=== PATIENT | male | born 1975 | race Caucasian/White ===

== ENCOUNTER 2022-05-07 14:10 | Outpatient (REF) | payer BC, SELFPAY ==
[2022-05-07 15:32] LABS: Hematocrit 45.3 % (42.0-52.0); Hemoglobin 15.6 g/dl (14.0-18.0); Mean Corpuscular HGB Conc 34.4 g/dl (31.0-36.0); Mean Corpuscular Hemoglobin 30.8 pg (27.0-33.0); Mean Corpuscular Volume 89.5 fL (80.0-98.0); Platelet Count 342 X10*3/uL (160-400); Red Blood Count 5.06 X10*6/uL (4.60-5.80); Red Cell Distribution Width 11.5 % (11.0-16.0)
[2022-05-07 15:58] LABS: Alanine Aminotransferase 60 U/L (0-40); Albumin Level 4.4 g/dL (3.5-5.0); Alkaline Phosphatase 51 U/L (39-117); Anion Gap 13 (12-20); Aspartate Amino Transferase 27 U/L (5-37); Bilirubin Direct 0.2 mg/dL (0.0-0.5); Bilirubin Total 0.7 mg/dL (0.0-1.0); Blood Urea Nitrogen 14 mg/dL (9-16); Calcium 9.4 mg/dL (8.4-10.2); Carbon Dioxide 28 mmol/L (22-29); Chloride 103 mmol/L (96-108); Cholesterol 204 mg/dL; Estimated Glomerular Filt Rate > 60; Glucose Random 99 mg/dL (60-115); HDL Cholesterol 42 mg/dL; LDL Cholesterol Calculated 123 mg/dl; Potassium 4.6 mmol/L (3.3-5.1); Sodium 139 mmol/L (135-145); Total Protein 6.9 g/dL (6.5-8.0); Triglycerides 198 mg/dL
[2022-05-07 16:17] LABS: Thyroid Stimulating Hormone 0.76 uIU/mL (0.32-4.0)
== END 2022-05-07 14:11 | disposition home or self-care (01) ==
LOC: HO.LAB 14:10
PROVIDERS: PCP Internal Medicine; Visit Provider Internal Medicine
DX: Z00.00 Encounter for general adult medical examination without abnormal findings (principal)
CPT/HCPCS: 36415; 80048; 80061; 80076; 84443; 85027

== ENCOUNTER → 2022-06-17 08:21 | Outpatient (BNVA) | payer BC, SELFPAY | PROVIDERS: PCP Internal Medicine; Visit Provider Physician Assistant | DX: Z13.89 Encounter for screening for other disorder (principal) ==

== ENCOUNTER 2022-11-18 10:32 | Day surgery (SDC) | payer BC, SELFPAY ==
--- NOTE | 2022-11-17 12:27 | HO.ANESPROP2 ---
Documented by User: Melvi Kenney NP 11/17/22 12:27 HPI - Anesthesia Eval Consult details Narrative: 47yo M for Colonoscopy COUNTS INCLUDE 234 BEDS AT THE [facility] Active Problems Active Problems: All Active Problems (Updated 06/17/22 @ 09:16 by Yoli Pichardo PA-C) Encounter for screening colonoscopy (Acute) History of chronic constipation (Acute) Annual physical exam (Acute) Upper respiratory tract infection (Acute) Obstructive sleep apnea (Acute) Obesity (Acute) Past Medical History Medical History Obesity Obstructive sleep apnea Family History Family History Father Alive and well Mother Alive and well Surgical History Surgical History H/O right knee surgery History of hand surgery Social History Social History (Updated 06/17/22 @ 08:57 by Yoli Pichardo PA-C) Alcohol intake: current Alcohol intake frequency: holidays/special occasions only Patient Tobacco Use Status: Former Tobacco user Quit Date: 01/2022 Are you DNR?: No Advance Directives: No Advance Directives Information Provided: Yes Nutrition Risks: No Nutritional Risk Cognitive needs: No Hearing needs: No Vision needs: No Meds Allergies Allergy/AdvReac Type Severity Reaction Status Date / Time No Known Allergies Allergy Verified 06/17/22 08:25 Exam Exam Date and Time: November 17, 2022 1227 Pertinent Lab Results Pertinent Lab Results: Laboratory Tests 05/07/22 05/07/22 14:33 14:33 WBC 6.0 Hgb 15.6 Hct 45.3 Plt Count 342 Sodium 139 Potassium 4.6 Chloride 103 Carbon Dioxide 28 BUN 14 Creatinine 0.84 Assessment and Plan Assessment Anesthesia Assessment: Chart Reviewed Documented by User: Chester Salcedo MD 11/18/22 11:13 COUNTS INCLUDE 234 BEDS AT THE [facility] Past Medical History Medical History Obesity Obstructive sleep apnea Family History Family History Father Alive and well Mother Alive and well Family history of problems with anesthesia: No Surgical History Surgical History H/O right knee surgery History of hand surgery History of Problems with Anesthesia: No Social History Social History (Updated 06/17/22 @ 08:57 by Yoli Pichardo PA-C) Alcohol intake: current Alcohol intake frequency: holidays/special occasions only Patient Tobacco Use Status: Former Tobacco user Quit Date: 01/2022 Are you DNR?: No Advance Directives: No Advance Directives Information Provided: Yes Nutrition Risks: No Nutritional Risk Cognitive needs: No Hearing needs: No Vision needs: No Meds Allergies Allergy/AdvReac Type Severity Reaction Status Date / Time No Known Allergies Allergy Verified 06/17/22 08:25 Exam Airway Mallampati Class: II TM Dist: >3cm Neck ROM: Limited Heart: rrr Lungs: cta Assessment and Plan Assessment Anesthesia Assessment: Anesthesia Plan Discussed Final Anesthetic Review Family History of Problems with Anesthesia: No History of Problems with Anesthesia: No NPO: Yes ASA Class: II Final Preanesthetic Review: No Changes in Pt Med Stat, Meds/Allgs Chart Reviewed, Consent Obtained/Reviewed and Anes Risks/Benef Reviewed Patient Risk: Low Procedure Risk: Low Anesthetic Plan Anesthetic Plan: MAC: and Agree w/ Assess. and Plan Disposition: Standard PACU
[2022-11-18 09:52] VITALS: BMI 31.9
[2022-11-18 10:39] VITALS: BP 132/79; PULSE 80; RESP 18; TEMP 36.1; O2SAT 98
[2022-11-18] MEDS: Lactated Ringers 1,000 ML 100 ML IVCONT (10:55)
--- NOTE | 2022-11-18 10:58 | MHC.SHP ---
Pre-Procedural Eval Section A Date of Service: 11/18/22 Section B Chief Complaint: screening Details of Present Illness: PMH: Obesity Obstructive sleep apnea Surgical History H/O right knee surgery History of hand surgery Present Medications: see Short Stay Collaborative assessment Allergies: Allergies Allergy/AdvReac Type Severity Reaction Status Date / Time No Known Allergies Allergy Verified 06/17/22 08:25 Review of Systems Review of Systems Comment: 10 point ROS negative Exam Exam Comment: Gen appear: No acute distress HEENT: no icterus Chest: No overt resp distress Abd: soft, nontender, nondistended Psych: Stable affect, answering questions appropriately Neuro: A/Ox3 noted to move all extremities spontaneously Ext: no peripheral edema Plan Diagnosis/Plan: Unchanged I have reviewed the history and physical and performed a pertinent physical examination on my patient. No changes have occurred unless specified. Time Spent With Patient Time: Total time managing care of this patient today ____ minutes.
--- NOTE | 2022-11-18 10:59 | P.OP_ITS ---
Operative Note Operative Note Date of Service: 11/18/22 Narrative: Procedure: Colonoscopy Indication: Screening Endoscopist: Dawn Rincon MD Anesthesia Provider: Natasha Lloyd CRNA Anesthesia type: MAC General Anesthesia Instrument: Olympus [id number]-H190L Consent: Indication, risks vs benefits, and alternatives were discussed with the patient who gave written informed consent to proceed. EKG, pulse, pulse oximetry and blood pressure were monitored throughout the procedure. Please see anesthesia flowsheet. Procedure: The patient was brought to the procedure room and placed in the left lateral decubitus position. IV medications were administered by the anesthesia provider in attendance. A digital rectal exam was performed which was abnormal for external hemorrhoids. A distal attachment cap was affixed to the tip of the scope and the colonoscope was then inserted through the anus and advanced through the colon to the cecum at 75 cm,and terminal ileum. Appendiceal orifice and ileocecal valve were identified. Mucosa was carefully examined under high definition white light as the instrument was slowly withdrawn in a retrograde panoramic fashion. Retroflexion was performed in ascending colon and rectum. The procedure was not difficult. There were no immediate obvious complications. The quality of the prep was BBPS: 2+2+3 = adequate Withdrawal time 23 minutes. Limitations: No limitations. Findings: Mucosa: Normal to cecum and terminal ileum. Protruding lesions: * 3 sessile polyp of size 3-6 mm in transverse colon. Cold snare polypectomy was performed. The polyps were completely removed and retrieved. * 1 sessile polyp of size 4 mm in descending colon. Cold snare polypectomy was performed. The polyp was completely removed and retrieved. * Medium internal hemorrhoids without stigmata of recent bleeding. Excavated lesions: * Moderate diverticulosis of left sided colon. Impression: 1. Normal colon and terminal ileum mucosa 2. Total of 4 polyps removed from transverse and descending colon. 3. Diverticulosis 4. External and internal hemorrhoids Recommendations: - Follow path results. - Repeat colonoscopy in 3 years if all polyps are adenomas, otherwise 5 years.
[2022-11-18 12:29] VITALS: BP 94/61; PULSE 88; RESP 16; TEMP 36.5; O2SAT 98
[2022-11-18 12:44] VITALS: BP 114/82; PULSE 68; RESP 18; TEMP 36.4; O2SAT 98
== END 2022-11-18 13:25 | disposition home or self-care (01) ==
PROVIDERS: PCP Internal Medicine; Visit Provider Internal Medicine
PROC: 0DJD8ZZ Inspection of Lower Intestinal Tract, Via Natural or Artificial Opening Endoscopic (ICD-10-PCS; CPT 45378; principal; 2022-11-18 12:00)
DX: Z12.11 Encounter for screening for malignant neoplasm of colon (principal); D12.4 Benign neoplasm of descending colon; D12.3 Benign neoplasm of transverse colon; K57.30 Diverticulosis of large intestine without perforation or abscess without bleeding; K64.8 Other hemorrhoids; K64.4 Residual hemorrhoidal skin tags; G47.33 Obstructive sleep apnea (adult) (pediatric); K59.00 Constipation, unspecified; E66.9 Obesity, unspecified; Z68.31 Body mass index [BMI] 31.0-31.9, adult; Z87.891 Personal history of nicotine dependence
CPT/HCPCS: 45385; 88305

== ENCOUNTER → 2022-11-18 10:32 | Outpatient (BNV) | payer BC, SELFPAY | PROVIDERS: PCP Internal Medicine; Visit Provider Internal Medicine | DX: Z12.11 Encounter for screening for malignant neoplasm of colon (principal); D12.3 Benign neoplasm of transverse colon; D12.4 Benign neoplasm of descending colon; K64.8 Other hemorrhoids | CPT/HCPCS: 45385 ==

== ENCOUNTER 2022-12-03 10:57 | Outpatient (AMB) | payer BC, SELFPAY ==
--- NOTE | 2022-12-03 11:05 | A.OFFVIS_ITS ---
Intake Vital Signs 12/03/22 11:06 Height 5 ft 7 in Weight 200 lb BMI 31.3 BP 119/70 Blood Pressure Location Lt brachial Position Sitting Pulse 82 Intake Visit Reasons: S/P [place]; Dr Rincon Intake Note: Patient follow up Colonoscopy results. Patient denies any GI issues. Pitch Filler Required: No Accompanied by: Self / Same As Patient Allergies No Known Allergies Allergy (Verified 12/03/22 11:05) HPI HPI Comments History of Present Illness Details 47-year-old male follows up after recent index colonoscopy with polypectomy Tolerated procedure well Reviewed procedure report and pathology Has normal bowel pattern he has no GI or general complaints [facility] Medical History (Updated 12/03/22 @ 11:33 by Yoli Pichardo PA-C) Obesity Obstructive sleep apnea Surgical History H/O right knee surgery History of hand surgery Hx of colonoscopy Family History Father Alive and well Mother Alive and well Social History Alcohol intake: current Alcohol intake frequency: holidays/special occasions only Patient Tobacco Use Status: Former Tobacco user Quit Date: 01/2022 Cognitive needs: No Hearing needs: No Vision needs: No Review of Systems Const All systems reviewed & are unremarkable except as noted in HPI and below Card Denies chest pain and Denies dyspnea Resp Denies dyspnea GI Denies abdominal pain and Denies heartburn Physical Exam Vital Signs: Last Vital Signs Pulse 82 12/03/22 11:06 BP 119/70 12/03/22 11:06 BMI result Body Mass Index 31.3 Const General: cooperative, healthy appearing, comfortable and no acute distress Orientation/consciousness: patient oriented x3 Limitations: no limitations Resp Effort & Inspection: normal respiratory effort and able to speak in complete sentences Skin General skin exam: no rashes or lesions noted Neuro General: patient oriented x3 Extrem General: Yes full ROM Psych Appearance: grossly normal and well kempt Mental Status: mental status grossly normal Speech and movement: Normal speech and movement present Affect: normal affect Attitude: cooperative Thought process: Normal thought process present Thought content: Normal thought content present Insight: Good insight present (Psych) Judgement: Good judgement present (Psych) Results Reviewed Results Reviewed: Findings: Mucosa: Normal to cecum and terminal ileum. Protruding lesions: * 3 sessile polyp of size 3-6 mm in transverse colon. Cold snare polypectomy was performed. The polyps were completely removed and retrieved. * 1 sessile polyp of size 4 mm in descending colon. Cold snare polypectomy was performed. The polyp was completely removed and retrieved. * Medium internal hemorrhoids without stigmata of recent bleeding. Excavated lesions: * ?Moderate diverticulosis of left sided colon. Impression: 1. Normal colon and terminal ileum mucosa 2. Total of 4 polyps removed from transverse and descending colon. 3. Diverticulosis 4. External and internal hemorrhoids Recommendations: - Follow path results. - Repeat colonoscopy in 3 years if all polyps are adenomas, otherwise 5 years. Name:LuluTellesAbdoulaye Age/Sex: 47/M Attending: Dawn Rincon MD : 1975 Submitted by: Dawn Rincon MD Copies to: Andrew Mike MD MR #: [id number] ? Status: [facility] Collected: 11/18/22 Location: [facility] Received: 11/18/22 Diagnosis A.? Colon, transverse, polypectomies:? Tubular adenomata; negative for high- grade dysplasia or carcinoma. B.? Colon, descending, polypectomy:? Fragments of tubular adenoma; negative for high-grade dysplasia or carcinoma. Clinical History Pre-Op Dx:? Colon cancer screening Post-Op Dx: Diverticulosis, external hemorrhoids, polyps Assessment & Plan Assessment & Plan (1) Tubular adenoma: Comment: index screening 3 adenomas Code(s): D36.9 - Benign neoplasm, unspecified site Plan: Recommendations: Repeat asymptomatic colonoscopy 3 years All first-degree relatives begin screening by age 40 (2) Diverticulosis of colon: Code(s): K57.30 - Diverticulosis of large intestine without perforation or abscess without bleeding Plan: Maintain high-fiber ER protocol (3) Internal hemorrhoids: Code(s): K64.8 - Other hemorrhoids Plan: Avoid straining High-fiber diet Patient Instructions: Repeat asymptomatic colonoscopy 3 years All first-degree relatives begin screening by age 40 Diverticulosis/diverticulitis ER protocol Avoid straining with hemorrhoids maintain high-fiber diet fiber supplements will be beneficial Encouraged to call with questions or concerns Coding Level of Care Code Est Pt Level 3 (88255) Diagnoses Tubular adenoma D36.9 Diverticulosis of colon K57.30 Internal hemorrhoids K64.8 Time Spent (min) 20
[2022-12-03 11:06] VITALS: BP 119/70; PULSE 82; BMI 31.3
== END 2022-12-03 11:31 | disposition home or self-care (01) ==
PROVIDERS: PCP Internal Medicine; Visit Provider Physician Assistant
DX: D36.9 Benign neoplasm, unspecified site (principal); K57.30 Diverticulosis of large intestine without perforation or abscess without bleeding; K64.8 Other hemorrhoids
CPT/HCPCS: 99213

== ENCOUNTER → 2022-12-03 10:57 | Outpatient (BNVA) | payer BC, SELFPAY | PROVIDERS: PCP Internal Medicine; Visit Provider Physician Assistant ==

== ENCOUNTER 2023-05-14 14:22 | Outpatient (AMB) | payer BC, SELFPAY ==
--- NOTE | 2023-05-14 14:24 | MHC.PC.OV ---
"Vital Signs 05/14/23 14:25 Height 5 ft 7 in Weight 209 lb 3 oz BMI 32.8 BP 120/70 Blood Pressure Location Lt brachial Position Sitting Pulse 85 Pulse Source Pulse Oximeter Pulse Oximetry (%) 97 Oxygen Delivery Method Room Air Intake Visit Reasons: PE Intake Note: Patient is here today for a physical. 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 [facility] Medical History (Updated 05/14/23 @ 15:23 by Andrew Mike MD) Erectile dysfunction Obstructive sleep apnea Obesity Surgical History Hx of colonoscopy H/O right knee surgery History of hand surgery Family History Father Alive and well Mother Alive and well Social History Housing: House Alcohol intake: current Alcohol intake frequency: holidays/special occasions only Patient Tobacco Use Status: Former Tobacco user Quit Date: 01/2022 e-Cigarette/Vaping Use: Never Used Second Hand Smoke Exposure: No service: No Current occupational status: employed Current occupation: [employer] Teacher Cognitive needs: No Hearing needs: No Vision needs: Yes (Reading glasses) Questionnaire PHQ-9 Over the last 2 weeks, how often have you been bothered by any of the following problems? 1. Little interest or pleasure in doing things: not at all 2. Feeling down, depressed, or hopeless: not at all 3. Trouble falling or staying asleep, or sleeping too much: not at all 4. Feeling tired or having little energy: not at all 5. Poor appetite or overeating: not at all 6. Feeling bad about yourself - or that you are a failure or have let yourself or your family down: not at all 7. Trouble concentrating on things, such as reading the newspaper or watching television: not at all 8. Moving or speaking so slowly that other people could have noticed. Or the opposite - being so fidgety or restless that you have been moving around a lot more than usual: not at all 9. Thoughts that you would be better off or of hurting yourself in some way: not at all Total score: 0 Depression Screening Interpretation: Negative Depression Screening Done: Yes Source: Developed by Drs. Antwan Lazaro, Shante Harris, Stefan Larson and colleagues, with an educational marcia from [employer]. Thrive Questionnaire Date Thrive assessed: 05/14/23 I am a: Patient What is your living situation today?: I have a steady place to live Within the past 12 months, did the food you bought not last and you didn't have the money to get more?: Never true Within the past 12 months, did you worry whether your food would run out before you got money to buy more?: Never true Do you have trouble paying for medicines?: No Do you have trouble getting transportation to medical appointments?: No Do you have trouble paying your heating and electricity bill?: No Do you have trouble taking care of your child, family member or friend?: No Do you have trouble with day-to-day activities such as bathing, preparing meals, shopping, managing finances, etc.?: No Are you currently unemployed and looking for a job?: No Are you interested in more education?: No Currently or been in a relationship where the following occur: no concerns reported AUDIT C Alcohol Use Questionnaire (AUDIT-C) 1. How often do you have a drink containing alcohol?: Never Total Score: 0 SHANA-7 AMB Questionnaire SHANA-7 Date SHANA - 7 assessed: 05/14/23 Feeling nervous, anxious, or on edge: 0 = Not at all Not being able to stop or control worryin = Not at all Worrying too much about different things: 0 = Not at all Trouble relaxin = Not at all Being so restless that it is hard to sit still: 0 = Not at all Becoming easily annoyed or irritable: 0 = Not at all Feeling afraid as if something awful might happen: 0 = Not at all Total SHANA-7 score (0-4 normal; 5-9 mild; 10-14 moderate; 15-21 severe): 0 Source: Developed by Drs. Antwan Lazaro, Shante Harris, Stefan Larson and colleagues, with an educational marcia from [employer]. Physical exam (Primary Care) Vital Signs: Last Vital Signs Pulse 85 05/14/23 14:25 BP 120/70 05/14/23 14:25 Pulse Ox 97 05/14/23 14:25 Oxygen Delivery Method Room Air 05/14/23 14:25 BMI result Body Mass Index 32.8 Tobacco/Smoking Status: Tobacco use Status Tobacco use date assessed 05/14/23 05/14/23 14:33 Patient Tobacco Use Status Former Tobacco user 05/14/23 14:33 e-Cigarette/Vaping Use Never Used 05/14/23 14:33 PHQ-9: PHQ-9 Score PHQ-9: Total score 0 05/14/23 14:33 Depression Screening Interpretation: Negative Thrive Assessment: Date of Thrive Assessment Date Thrive assessed 05/14/23 05/14/23 14:33 Currently or been in a relationship where the following occur: no concerns reported Const General: cooperative and healthy appearing Nutritional Appearance: well nourished Orientation/consciousness: patient oriented x3 Limitations: no limitations HENMT Head: Yes normal to inspection Eyes General: appearance normal, both eyes and all related structures Neck Neck: Yes normal visual inspection Chest Chest palpation & inspection: normal palpation of entire chest wall Resp Effort & Inspection: normal respiratory effort Neuro General: patient oriented x3 Assessment and Plan Assessment & Plan (1) Annual physical exam: Code(s): Z00.00 - Encounter for general adult medical examination without abnormal findings Plan: Screening blood work ordered. Patient is up-to-date on screening colonoscopy. (2) Erectile dysfunction: Code(s): N52.9 - Male erectile dysfunction, unspecified Plan: Cialis ordered. Medications: New tadalafil (Cialis) 5 mg PO DAILY 30 tabs 0RF Coding Level of Care Code Est Pt Prev Care 40-64y(34811) Diagnoses Annual physical exam Z00.00 Erectile dysfunction N52.9"
[2023-05-14 14:25] VITALS: BP 120/70; PULSE 85; O2SAT 97; BMI 32.8
== END 2023-05-14 15:28 | disposition home or self-care (01) ==
PROVIDERS: Visit Provider Internal Medicine
DX: Z00.00 Encounter for general adult medical examination without abnormal findings (principal); N52.9 Male erectile dysfunction, unspecified
CPT/HCPCS: 99396

== ENCOUNTER 2023-05-18 12:45 | Outpatient (REF) | payer BC, SELFPAY ==
[2023-05-18 14:16] LABS: Hematocrit 45.7 % (42.0-52.0); Mean Corpuscular Hemoglobin 31.1 pg (27.0-33.0); Mean Corpuscular Volume 88.9 fL (80.0-98.0); Mean Platelet Volume 8.8 fL (9.4-12.4); Platelet Count 310 X10*3/uL (160-400); Red Blood Count 5.14 X10*6/uL (4.60-5.80); Red Cell Distribution Width 11.7 % (11.0-16.0); White Blood Count 4.9 X10*3/uL (4.8-10.8)
[2023-05-18 15:39] LABS: Alanine Aminotransferase 63 U/L (0-40); Albumin Level 4.3 g/dL (3.5-5.0); Alkaline Phosphatase 48 U/L (39-117); Anion Gap 14 (12-20); Aspartate Amino Transferase 25 U/L (5-37); Bilirubin Direct 0.1 mg/dL (0.0-0.5); Bilirubin Total 0.4 mg/dL (0.0-1.0); Blood Urea Nitrogen 12 mg/dL (9-16); Calcium 9.4 mg/dL (8.4-10.2); Carbon Dioxide 28 mmol/L (22-29); Chloride 103 mmol/L (96-108); Cholesterol 220 mg/dL (<200); Estimated Glomerular Filt Rate > 60; Glucose Random 92 mg/dL (60-115); HDL Cholesterol 42 mg/dL (>40); LDL Cholesterol Calculated 149 mg/dL (<100); Potassium 4.3 mmol/L (3.3-5.1); Sodium 141 mmol/L (135-145); Total Protein 7.2 g/dL (6.5-8.0); Triglycerides 146 mg/dL (<150)
== END 2023-05-18 12:46 | disposition home or self-care (01) ==
LOC: HO.LAB 12:45
PROVIDERS: PCP Internal Medicine; Visit Provider Internal Medicine
DX: Z00.00 Encounter for general adult medical examination without abnormal findings (principal)
CPT/HCPCS: 36415; 80048; 80061; 80076; 84443; 85027

== ENCOUNTER 2024-06-02 13:29 | Outpatient (REF) | payer BC, SELFPAY ==
[2024-06-02 14:43] LABS: MANUAL DIFF FLAG NO
[2024-06-02 15:45] LABS: Basophils Percent Auto 0.5 % (0-2); Eosinophils Absolute Auto 0.1 X10*3/uL (0.0-0.4); Eosinophils Percent Auto 1.2 % (0-4); Hematocrit 46.9 % (42.0-52.0); Hemoglobin 16.6 g/dl (14.0-18.0); Imm Gran Abs Auto 0.03 X10*3/uL (0.00-0.03); Imm Gran Pct Auto 0.5 % (0.0-0.4); Lymphocytes Absolute Auto 1.2 X10*3/uL (1.2-4.9); Lymphocytes Percent Auto 21.8 % (20-40); Mean Corpuscular HGB Conc 35.4 g/dl (31.0-36.0); Mean Corpuscular Hemoglobin 32.1 pg (27.0-33.0); Mean Corpuscular Volume 90.7 fL (80.0-98.0); Mean Platelet Volume 8.6 fL (9.4-12.4); Monocytes Absolute Auto 0.6 X10*3/uL (0.1-1.2); Monocytes Percent Auto 10.1 % (2-11); Neutrophils Absolute Auto 3.7 x10*3/uL (2.0-8.3); Neutrophils Percent Auto 65.9 % (45-73); Platelet Count 333 X10*3/uL (160-400); Red Blood Count 5.17 X10*6/uL (4.60-5.80); Red Cell Distribution Width 12.5 % (11.0-16.0); White Blood Count 5.6 X10*3/uL (4.8-10.8)
[2024-06-02 15:52] LABS: Estimated Average Glucose 108 mg/dL; Hemoglobin A1C 151.7387 umol/L; Hemoglobin A1c % 5.4 % (<6.0); Total Hemoglobin (HGBA1C) 4324.7203 umol/L
[2024-06-02 16:25] LABS: Alanine Aminotransferase 60 U/L (0-40); Albumin Level 4.7 g/dL (3.5-5.0); Alkaline Phosphatase 55 U/L (39-117); Anion Gap 12 (12-20); Aspartate Amino Transferase 29 U/L (5-37); Bilirubin Direct 0.2 mg/dL (0.0-0.5); Bilirubin Total 0.6 mg/dL (0.0-1.0); Blood Urea Nitrogen 13 mg/dL (9-16); Calcium 9.5 mg/dL (8.4-10.2); Carbon Dioxide 27 mmol/L (22-29); Chloride 102 mmol/L (96-108); Cholesterol 225 mg/dL (<200); Estimated Glomerular Filt Rate > 60; Glucose Fasting 99 mg/dL (60-99); HDL Cholesterol 68 mg/dL (>40); LDL Cholesterol Calculated 134 mg/dL (<100); Magnesium 2.4 mg/dL (1.6-2.6); Sodium 137 mmol/L (135-145); Total Protein 7.9 g/dL (6.5-8.0); Triglycerides 115 mg/dL (<150)
[2024-06-02 16:37] LABS: PSA,Total (Free>4and<10) 0.98 ng/mL (0.00-4.00)
[2024-06-02 16:43] LABS: TSH reflex Free T4 0.95 uIU/mL (0.32-4.0); Vitamin D 25-OH Total 20.2 ng/mL (>30)
[2024-06-02 16:46] LABS: Folate 9.8 ng/mL (> or = 4.0); Vitamin B12 553 pg/mL (200-900)
[2024-06-03 22:10] LABS: Lyme Abs Screen <0.90 index
[2024-06-06 17:13] LABS: Testosterone, Total 307 ng/dL (250-1100)
== END 2024-06-02 13:30 | disposition home or self-care (01) ==
LOC: HO.LAB 13:29
PROVIDERS: PCP Internal Medicine; Visit Provider Physician Assistant Medical
DX: Z00.00 Encounter for general adult medical examination without abnormal findings (principal); N52.9 Male erectile dysfunction, unspecified; K64.8 Other hemorrhoids; K57.30 Diverticulosis of large intestine without perforation or abscess without bleeding; G47.33 Obstructive sleep apnea (adult) (pediatric); E66.9 Obesity, unspecified; E78.5 Hyperlipidemia, unspecified; Z87.19 Personal history of other diseases of the digestive system; Z86.0101 Personal history of adenomatous and serrated colon polyps; Z12.5 Encounter for screening for malignant neoplasm of prostate; Z13.1 Encounter for screening for diabetes mellitus
CPT/HCPCS: 36415; 80053; 80061; 80076; 82248; 82306; 82607; 82746; 83036; 83735; 84153; 84403; 84443; 85025; 86617; 86618; 96127

== ENCOUNTER 2024-12-01 14:46 | Outpatient (AMB) | payer BC, SELFPAY ==
--- NOTE | 2024-12-01 14:52 | MHC.PC.OV ---
Vital Signs 12/01/24 14:53 Height 5 ft 7 in Weight 197 lb 2 oz BMI 30.9 BP 120/76 Blood Pressure Location Lt brachial Position Sitting Pulse 86 Pulse Source Pulse Oximeter Temp 97.3 F Temp Source Temporal Artery Scan Pulse Oximetry (%) 97 Oxygen Delivery Method Room Air Intake Visit Reasons: 6mth f/u Intake Note: Patient is here to follow up on SOHAM, HLD, ED. Storage Specialist Required: No Professor Of Forest Planning: Not Required per policy Accompanied by: Self / Same As Patient Allergies No Known Allergies Allergy (Verified 12/02/24 07:44) Medication List - Last Reconciled 12/02/24 by Andrew Mkie MD cholecalciferol (vitamin D3) 1,250 mcg PO QWEEK 3 months tadalafil (Cialis) 20 mg PO DAILY PRN Tobacco use date assessed: 12/01/24 Dental Screening Dental Screen Date: 06/02/24 PFSH Medical History Vitamin D deficiency Hyperlipidemia General medical exam Erectile dysfunction Obstructive sleep apnea Obesity Surgical History Hx of colonoscopy (~11/18/22) H/O right knee surgery History of hand surgery Family History Father Alive and well Mother Alive and well Social History Housing: House Alcohol intake: current Alcohol intake frequency: a few times a month Patient Tobacco Use Status: Current someday Tobacco user Tobacco use type: Cigarette e-Cigarette/Vaping Use: Never Used Second Hand Smoke Exposure: Yes service: No Current occupational status: employed Current occupation: [employer]ist Cognitive needs: No Hearing needs: No Vision needs: Yes (Reading glasses) Questionnaire Thrive Questionnaire Date Thrive assessed: 06/02/24 I am a: Patient What is your living situation today?: I have a steady place to live Within the past 12 months, did the food you bought not last and you didn't have the money to get more?: Never true Within the past 12 months, did you worry whether your food would run out before you got money to buy more?: Never true Do you have trouble paying for medicines?: No Do you have trouble getting transportation to medical appointments?: No Do you have trouble paying your heating and electricity bill?: No Do you have trouble taking care of your child, family member or friend?: No Do you have trouble with day-to-day activities such as bathing, preparing meals, shopping, managing finances, etc.?: No Are you currently unemployed and looking for a job?: No Are you interested in more education?: No Please select the resources that you would like help with: None Currently or been in a relationship where the following occur: No concerns reported THRIVE Score: 0 SHANA-7 AMB Questionnaire SHANA-7 Date SHANA - 7 assessed: 06/02/24 Source: Developed by Drs. Antwan Lazaro, Shante Harris, Stefan Larson and colleagues, with an educational marcia from [employer]. Physical exam (Primary Care) Vital Signs: Last Vital Signs Temp 97.3 F 12/01/24 14:53 Pulse 86 12/01/24 14:53 BP 120/76 12/01/24 14:53 Pulse Ox 97 12/01/24 14:53 Oxygen Delivery Method Room Air 12/01/24 14:53 Care Plan Goal for BP management: Blood pressure is in range. BMI result Body Mass Index 30.9 Tobacco/Smoking Status: Tobacco use Status Tobacco use date assessed 12/01/24 12/01/24 15:11 Patient Tobacco Use Status Current someday Tobacco 12/01/24 15:11 Tobacco use type Cigarette 12/01/24 15:11 e-Cigarette/Vaping Use Never Used 12/01/24 15:11 Thrive Assessment: Date of Thrive Assessment Date Thrive assessed 06/02/24 12/01/24 15:11 Currently or been in a relationship where the following occur: No concerns reported Coding Level of Care Code Est Pt Level 4 (73054) Complex EM visit Add On G2211 Diagnoses Hyperlipidemia E78.5 Assessment & Plan Assessment & Plan (1) Hyperlipidemia: Code(s): E78.5 - Hyperlipidemia, unspecified Category: Medical Plan: Fasting blood work has been ordered. Will call with the results. Plan History of Present Illness - The patient is a 49-year-old male presenting with evaluation of eye bump and sleep apnea. - Pterygium: Reports a fleshy growth on the right eye, identified as pterygium, likely due to environmental factors. - Sleep Apnea: Acknowledges diagnosis but does not use CPAP. Has lost 10 pounds since last visit, aiming for further weight loss. - Ganglion Cyst: Present, not painful, stable in size for two years. - Increased Bowel Movements: Reports frequent bowel movements, approximately three times daily, without discomfort. - Social History: Works as a project development manager, involving desk and field activities. Enjoys fieldwork for physical activity. 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 - Exercise: Enjoys fieldwork for physical activity, previously engaged in lifting weights. - Weight Management: Has lost 10 pounds since the last visit, aiming for further weight loss. Review of Systems - Ophthalmologic: Reports fleshy growth on right eye. - Respiratory: Reports sleep apnea, denies use of CPAP machine. - Gastrointestinal: Reports frequent bowel movements, approximately three times daily, without discomfort. Physical Exam General: Cooperative and healthy appearing Nutritional Appearance: Well nourished Orientation/consciousness: Patient oriented x3 Limitations: No limitations Head: Normal to inspection General: Appearance normal, both eyes and all related structures Neck: Normal visual inspection Chest: Normal palpation of entire chest wall Respiratory: Patient reports sleep apnea but does not use a machine. Reports snoring and yawning, especially when tired or bored. ormal respiratory effort Neurology: Patient oriented x3. Reports feeling tired due to late nights and long workdays but is able to perform all work activities. No neurological deficits noted. Results Plan 1. Pterygium - Plan: Monitor the pterygium for any changes in size or symptoms. 2. Sleep Apnea - Plan: Encourage weight loss as a management strategy for sleep apnea. - Follow-up: Consider CPAP therapy if symptoms persist despite weight loss. 3. Ganglion Cyst - Plan: No intervention required unless the cyst becomes painful or increases in size. 4. Increased Bowel Movements - Plan: Monitor bowel habits, no intervention needed as there is no discomfort. Discussion Notes During the visit, we discussed the patient's pterygium, which will be monitored for any changes. We also addressed sleep apnea, with a focus on weight loss as a management strategy. The ganglion cyst does not require intervention unless symptomatic. The patient's bowel habits were reviewed, and no intervention is needed at this time. Fasting blood work was ordered to be completed in the next few weeks. Patient Instructions - Monitor the eye for any changes in the pterygium. - Continue weight loss efforts to manage sleep apnea. - No need to treat the ganglion cyst unless it becomes painful or changes in size. - Observe bowel habits; no action needed unless discomfort arises. - Complete fasting blood work within the next few weeks. Orders: Orders Basic Metabolic Panel 12/01/24 E78.5 - Hyperlipidemia, unspecified Liver Panel 12/01/24 E78.5 - Hyperlipidemia, unspecified Thyroid Stimulating Hormone 12/01/24 E78.5 - Hyperlipidemia, unspecified Complete Blood Count no Diff 12/01/24 E78.5 - Hyperlipidemia, unspecified Lipid Panel 12/01/24 E78.5 - Hyperlipidemia, unspecified UA and rflx microscopic 12/01/24 E78.5 - Hyperlipidemia, unspecified Medications: Refilled tadalafil (Cialis) administer approximately 30min before sexual activity; do not use more than 1 dose per 24hrs 20 mg PO DAILY PRN 30 tabs 1RF sexual activity N52.9 - Male erectile dysfunction, unspecified
[2024-12-01 14:53] VITALS: BP 120/76; PULSE 86; TEMP 36.3; O2SAT 97; BMI 30.9
== END 2024-12-01 15:37 | disposition home or self-care (01) ==
LOC: HO.HMCH 14:46
PROVIDERS: PCP Internal Medicine; Visit Provider Internal Medicine
DX: E78.5 Hyperlipidemia, unspecified (principal)